=== PATIENT | male | born 1975 | race Hispanic/Latino ===

== ENCOUNTER 2018-01-22 14:15 | Emergency (ER) | payer OTHER, SELFPAY ==
--- NOTE | 2018-01-22 14:52 | RAD REPORT ---
EXAM DESCRIPTION: RAD - Foot Right 3 View - 01/22/2018 2:44 pm CLINICAL HISTORY: PAIN COMPARISON: No comparisons FINDINGS: Two screws are present in the medial malleolus. Small plantar calcaneal spur is present. N o acute fracture.
--- NOTE | 2018-01-22 15:03 | ER ---
Nurse's Notes [facility] Name: Rian Pitt Age: 42 yrs Sex: Male : 1975 Arrival Date: 01/22/2018 Time: 14:18 Bed 12 Private MD: Diagnosis: Calcaneal spur, right foot Presentation: 01/22 14:18 Presenting complaint: Patient states: It feels like something is poking my foot from la1 the inside on my right heel for the last 2 weeks, pt denies injury. Transition of care: patient was not received from another setting of care. Onset of symptoms was January 22, 2018. Risk Assessment: Do you want to hurt yourself or someone else? Patient reports no desire to harm self or others. Initial Sepsis Screen: Does the patient meet any 2 criteria? No. Patient's initial sepsis screen is negative. Does the patient have a suspected source of infection? No. Patient's initial sepsis screen is negative. Care prior to arrival: None. 14:18 Method Of Arrival: Ambulatory la1 14:18 Acuity: SHAKA 4 la1 Historical: - Allergies: 14:19 No Known Allergies; la1 - PMHx: 14:19 Diabetes - NIDDM; Hypertension; la1 - Immunization history:: Adult Immunizations up to date. - Social history:: Smoking status: Patient/guardian denies using tobacco. - Ebola Screening: : No symptoms or risks identified at this time. Screenin:38 Abuse screen: Denies threats or abuse. Nutritional screening: No deficits noted. la1 Tuberculosis screening: No symptoms or risk factors identified. Fall Risk None identified. Assessment: 14:37 General: Appears in no apparent distress. Behavior is calm, cooperative. Pain: la1 Complains of pain in right foot. Neuro: Level of Consciousness is awake, alert, obeys commands, Oriented to person, place, time, situation. Cardiovascular: Patient's skin is warm and dry. Respiratory: Airway is patent Respiratory effort is even, unlabored, Respiratory pattern is regular, symmetrical. GI: No signs and/or symptoms were reported involving the gastrointestinal system. : No signs and/or symptoms were reported regarding the genitourinary system. Vital Signs: 14:19 BP 141 / 89; Pulse 115; Resp 18; Temp 98.7; Pulse Ox 98% on R/A; Weight 111.13 kg; la1 Height 5 ft. 11 in. (180.34 cm); 14:19 Body Mass Index 34.17 (111.13 kg, 180.34 cm) la1 ED Course: 14:18 Patient arrived in ED. la1 14:19 Triage completed. la1 14:20 Arm band placed on right wrist. la1 14:21 Chris Leonard NP is PHCP. pm1 14:21 Raul Liang MD is Attending Physician. pm1 14:37 Garth Cordero, RN is Primary Nurse. la1 14:38 Call light in reach. Side rails up X 1. la1 14:38 No provider procedures requiring assistance completed. Patient did not have IV access la1 during this emergency room visit. 14:42 Foot Right 3 View XRAY In Process Unspecified. EDMS 15:01 Jose Luis Danielson DPM is Referral Physician. pm1 Administered Medications: No medications were administered Outcome: 15:02 Discharge ordered by MD. pm1 15:11 Discharged to home ambulatory, with family. hb 15:11 Condition: stable 15:11 Discharge instructions given to patient, Instructed on discharge instructions, follow up and referral plans. medication usage, Demonstrated understanding of instructions, follow-up care, medications, Prescriptions given X 1. 15:11 Patient left the ED. hb Signatures: Dispatcher [employer] EDMS Garth Cordero, RN RN la1 Chris Leonard NP PRODUCT DEVELOPMENT CARPENTER pm1 Shanda Hall RN RN hb
--- NOTE | 2018-01-22 15:03 | EDPHYS ---
Physician Documentation [facility] Name: Rian Pitt Age: 42 yrs Sex: Male : 1975 Arrival Date: 01/22/2018 Time: 14:18 Bed 12 Private MD: ED Physician Raul Liang HPI: 01/22 14:58 This 42 yrs old Male presents to ER via Ambulatory with complaints of Foot pm1 Pain Right. 14:58 The patient presents with pain. The complaints affect the right heel. pm1 14:58 Context: The problem was sustained at home, resulted from an unknown cause, the patient pm1 can fully bear weight, the patient is able to ambulate, Problem is a result from a previous injury: No. Onset: The symptoms/episode began/occurred 2 week(s) ago. Modifying factors: the symptoms are aggravated by weight bearing. Associated signs and symptoms: Pertinent negatives calf tenderness, fever, nausea, numbness, swelling, tingling, vomiting, weakness. Treatment prior to arrival includes: shoe inserts and extra socks. Severity of symptoms: in the emergency department the symptoms are actually worse. The patient has not experienced similar symptoms in the past. The patient has not recently seen a physician. Historical: - Allergies: 14:19 No Known Allergies; la1 - PMHx: 14:19 Diabetes - NIDDM; Hypertension; la1 - Immunization history:: Adult Immunizations up to date. - Social history:: Smoking status: Patient/guardian denies using tobacco. - Ebola Screening: : No symptoms or risks identified at this time. ROS: 14:58 Constitutional: Negative for fever, chills, and weight loss, Eyes: Negative for injury, pm1 pain, redness, and discharge, ENT: Negative for injury, pain, and discharge, Neck: Negative for injury, pain, and swelling, Cardiovascular: Negative for chest pain, palpitations, and edema, Respiratory: Negative for shortness of breath, cough, wheezing, and pleuritic chest pain, Abdomen/GI: Negative for abdominal pain, nausea, vomiting, diarrhea, and constipation, Back: Negative for injury and pain. 14:58 Skin: Negative for injury, rash, and discoloration, Neuro: Negative for headache, weakness, numbness, tingling, and seizure. 14:58 MS/extremity: Positive for pain, of the right heel. Exam: 14:58 Constitutional: This is a well developed, well nourished patient who is awake, alert, pm1 and in no acute distress. Head/Face: Normocephalic, atraumatic. Eyes: Pupils equal round and reactive to light, extra-ocular motions intact. Lids and lashes normal. Conjunctiva and sclera are non-icteric and not injected. Cornea within normal limits. Periorbital areas with no swelling, redness, or edema. ENT: Nares patent. No nasal discharge, no septal abnormalities noted. Tympanic membranes are normal and external auditory canals are clear. Oropharynx with no redness, swelling, or masses, exudates, or evidence of obstruction, uvula midline. Mucous membranes moist. Neck: Trachea midline, no thyromegaly or masses palpated, and no cervical lymphadenopathy. Supple, full range of motion without nuchal rigidity, or vertebral point tenderness. No Meningismus. Chest/axilla: Normal chest wall appearance and motion. Nontender with no deformity. No lesions are appreciated. Cardiovascular: Regular rate and rhythm with a normal S1 and S2. No gallops, murmurs, or rubs. Normal PMI, no JVD. No pulse deficits. Respiratory: Lungs have equal breath sounds bilaterally, clear to auscultation and percussion. No rales, rhonchi or wheezes noted. No increased work of breathing, no retractions or nasal flaring. Abdomen/GI: Soft, non-tender, with normal bowel sounds. No distension or tympany. No guarding or rebound. No evidence of tenderness throughout. Back: No spinal tenderness. No costovertebral tenderness. Full range of motion. Skin: Warm, dry with normal turgor. Normal color with no rashes, no lesions, and no evidence of cellulitis. 14:58 Musculoskeletal/extremity: Extremities: grossly normal except: noted in the right heel: tenderness, There is no evidence of swelling. Vital Signs: 14:19 BP 141 / 89; Pulse 115; Resp 18; Temp 98.7; Pulse Ox 98% on R/A; Weight 111.13 kg; la1 Height 5 ft. 11 in. (180.34 cm); 14:19 Body Mass Index 34.17 (111.13 kg, 180.34 cm) la1 MDM: 14:21 Patient medically screened. pm1 14:59 Data reviewed: vital signs. Data interpreted: Pulse oximetry: on room air is 98 %. pm1 Interpretation: normal. Counseling: I had a detailed discussion with the patient and/or guardian regarding: the historical points, exam findings, and any diagnostic results supporting the discharge/admit diagnosis, radiology results, the need for outpatient follow up, for definitive care, a hay baler, to return to the emergency department if symptoms worsen or persist or if there are any questions or concerns that arise at home. 01/22 14:22 Order name: Foot Right 3 View XRAY; Complete Time: 14:54 pm1 Administered Medications: No medications were administered Disposition: 18:38 Co-signature as Attending Physician, Raul Liang MD Available for consultation at ps1 all times. . Disposition: 01/22/18 15:02 Discharged to Home. Impression: Calcaneal spur, right foot. - Condition is Stable. - Discharge Instructions: Heel Spur. - Prescriptions for Tramadol 50 mg Oral Tablet - take 1 tablet by ORAL route every 8 hours as needed; 12 tablet. - Medication Reconciliation Form, Thank You Letter, Prescription Opioid Use form. - Follow up: Emergency Department; When: As needed; Reason: Worsening of condition. Follow up: Jose Luis Danielson DPM; When: 2 - 3 days; Reason: Recheck today's complaints, Continuance of care, Re-evaluation by your physician. - Problem is new. - Symptoms have improved. Signatures: Dispatcher [employer] EDMS Garth Cordero RN RN la1 Chris Leonard, [facility] [employer] [employer] MANAGER pm1 Shanda Hall RN RN hb Singer, Phillip, MD MD ps1 Corrections: (The following items were deleted from the chart) 15:11 15:02 01/22/2018 15:02 Discharged to Home. Impression: Calcaneal spur, right foot. hb Condition is Stable. Forms are Medication Reconciliation Form, Thank You Letter, Antibiotic Education, Prescription Opioid Use. Follow up: Emergency Department; When: As needed; Reason: Worsening of condition. Follow up: Dr. Jose Luis Danielson; When: 2 - 3 days; Reason: Recheck today's complaints, Continuance of care, Re-evaluation by your physician. Problem is new. Symptoms have improved. pm1
== END 2018-01-22 15:11 | disposition home or self-care (01) ==
LOC: ER 14:15
DX: M77.31 Calcaneal spur, right foot (principal)
CPT/HCPCS: 99283

== ENCOUNTER 2018-10-07 05:23 | Observation (INO) | payer BC, SELFPAY ==
[2018-10-07] MEDS ORDERED: NA CHLORIDE 0.9% 50 ML IV ONE (06:06)
[2018-10-07] MEDS ORDERED: NA CHLORIDE 0.9% 1,000 ML ONE (06:06)
[2018-10-07] MEDS ORDERED: KETOROLAC 30 MG/ML INJ ONE (06:06)
[2018-10-07] MEDS ORDERED: DIPHENHYDRAMINE 50 MG/ML VIAL ONE (06:06)
[2018-10-07] MEDS ORDERED: MECLIZINE HCL 12.5 MG TAB ONE (06:06)
[2018-10-07 06:07] LABS: Absolute Lymphocytes (CBC) 2.1 K/uL (0.7-4.9); Basophils % 0.4 % (0-1.3); Eosinophils % 2.8 % (0-4.4); Hematocrit 48.6 % (39.6-49.0); Lymphocytes % 24.1 % (15.3-44.8); MPV 9.4 fL (7.6-11.3); Monocytes % 8.4 % (3.3-12.3); RBC Red Blood Cell Count 5.53 M/uL (4.33-5.43)
[2018-10-07 06:16] LABS: Albumin 3.8 g/dL (3.4-5.0); Bilirubin Direct 0.2 mg/dL (0-0.2); Bilirubin Total 0.6 mg/dL (0.2-1.0); Protein, Total 7.4 g/dL (6.4-8.2)
[2018-10-07] MEDS ORDERED: METOCLOPRAMIDE 10 MG/2mL INJ ONE (06:22)
--- NOTE | 2018-10-07 07:14 | EDPHYS ---
Physician Documentation [facility] Name: Rian Pitt Age: 42 yrs Sex: Male : 1975 Arrival Date: 10/07/2018 Time: 05:24 Bed 5 Private MD: ED Physician Urbano Campbell HPI: 10/07 05:36 This 42 yrs old Male presents to ER via Unassigned with complaints of ma2 Headache, Dizziness, Nausea. 05:36 The patient complains of pain to the forehead. Onset: The symptoms/episode ma2 began/occurred gradually, 1 day(s) ago. Associated signs and symptoms: Pertinent positives: Vertigo Pertinent negatives: nausea, Photophobia sinus congestion, vision changes. Severity of symptoms: At its worst the pain was moderate, in the emergency department the pain is unchanged. Headache History: The patient has had previous headaches and this one is similar to previous episodes. The patient has experienced similar episodes in the past. Historical: - Allergies: 05:41 No Known Allergies; jd3 - Home Meds: 05:41 Novolin N Sub-Q [Active]; metformin 1,000 mg Oral tab 1 tab 2 times per day [Active]; jd3 lisinopril 10 mg Oral tab 1 tab once daily [Active]; - PMHx: 05:41 Diabetes - NIDDM; Hypertension; jd3 - PSHx: 05:41 right foot; jd3 - Immunization history:: Adult Immunizations up to date. - Social history:: Patient/guardian denies using alcohol, street drugs, The patient lives with family, Smoking status: Patient/guardian denies using tobacco. - Family history:: not pertinent. - Ebola Screening: : Patient negative for fever greater than or equal to 101.5 degrees Fahrenheit, and additional compatible Ebola Virus Disease symptoms. ROS: 05:36 Constitutional: Negative for fever, chills, and weight loss, Eyes: Negative for injury, ma2 pain, redness, and discharge. 05:36 All other systems are negative. Exam: 05:36 Constitutional: This is a well developed, well nourished patient who is awake, alert, ma2 and in no acute distress. ENT: Nares patent. No nasal discharge, no septal abnormalities noted. Tympanic membranes are normal and external auditory canals are clear. Oropharynx with no redness, swelling, or masses, exudates, or evidence of obstruction, uvula midline. Mucous membranes moist. Chest/axilla: Normal chest wall appearance and motion. Nontender with no deformity. No lesions are appreciated. Cardiovascular: Regular rate and rhythm with a normal S1 and S2. No gallops, murmurs, or rubs. Normal PMI, no JVD. No pulse deficits. Respiratory: Lungs have equal breath sounds bilaterally, clear to auscultation and percussion. No rales, rhonchi or wheezes noted. No increased work of breathing, no retractions or nasal flaring. Abdomen/GI: Soft, non-tender, with normal bowel sounds. No distension or tympany. No guarding or rebound. No evidence of tenderness throughout. Skin: Warm, dry with normal turgor. Normal color with no rashes, no lesions, and no evidence of cellulitis. MS/ Extremity: Pulses equal, no cyanosis. Neurovascular intact. Full, normal range of motion. Neuro: Awake and alert, GCS 15, oriented to person, place, time, and situation. Cranial nerves II-XII grossly intact. Motor strength 5/5 in all extremities. Sensory grossly intact. Cerebellar exam normal. Normal gait. Vital Signs: 05:41 BP 110 / 73; Pulse 87; Resp 16 S; Temp 97.4(O); Pulse Ox 100% on R/A; Weight 112.04 kg jd3 (R); Height 5 ft. 11 in. (180.34 cm) (R); Pain 6/10; 06:28 BP 108 / 70; Pulse 78; Resp 15 S; Pulse Ox 100% on R/A; Pain 3/10; jd3 07:13 BP 109 / 67; Pulse 76; Resp 18; Temp 97.4(TE); Pulse Ox 100% on R/A; hj 05:41 Body Mass Index 34.45 (112.04 kg, 180.34 cm) jd3 MDM: 05:35 Patient medically screened. ma2 05:36 Differential diagnosis: cerebral abscess, hypoglycemia, hyponatremia, uremia. Data ma2 reviewed: vital signs, nurses notes, old medical records. Counseling: I had a detailed discussion with the patient and/or guardian regarding: the historical points, exam findings, and any diagnostic results supporting the discharge/admit diagnosis, the presence of at least one elevated blood pressure reading (>120/80) during this emergency department visit, the need for outpatient follow up. Response to treatment: the patient's symptoms have resolved after treatment. 07:12 ED course: Tom. ED course: discussed with dr. Samayoa. 10/07 05:36 Order name: Basic Metabolic Panel; Complete Time: 07:08 10/07 05:36 Order name: CBC with Diff; Complete Time: 07:08 10/07 05:36 Order name: Creatinine for Radiology; Complete Time: 07:08 10/07 05:36 Order name: Hepatic Function; Complete Time: 07:08 10/07 05:36 Order name: Lipase; Complete Time: 07:08 10/07 05:36 Order name: CT Head Brain wo Cont 10/07 05:36 Order name: IV Saline Lock; Complete Time: 05:48 10/07 05:36 Order name: Labs collected and sent; Complete Time: 05:48 10/07 07:21 Order name: CONS Pharmacy Consult EDMS Administered Medications: 05:59 Drug: NS 0.9% 1000 ml Route: IV; Rate: 1 bolus; Site: right forearm; jd3 07:01 Follow up: Response: No adverse reaction; IV Status: Completed infusion; IV Intake: jd3 1000ml 05:59 Drug: Meclizine 50 mg Route: PO; jd3 06:55 Follow up: Response: No adverse reaction jd3 06:00 Drug: Benadryl 25 mg Route: IVP; Site: right forearm; jd3 07:00 Follow up: Response: No adverse reaction jd3 06:00 Drug: TORadol 30 mg Route: IVP; Site: right forearm; jd3 07:00 Follow up: Response: No adverse reaction jd3 06:13 Drug: Reglan 20 mg Route: IVP; Site: right forearm; jd3 06:30 Follow up: Response: No adverse reaction jd3 Disposition: 10/07/18 07:13 Hospitalization ordered by Candelaria Samayoa for Observation. Preliminary diagnosis is Other acute kidney failure. - Bed requested for Telemetry/MedSurg (observation). - Status is Observation. hj - Condition is Stable. - Problem is new. - Symptoms are unchanged. UTI on Admission? No Signatures: Dispatcher [employer] EDMS Enriqueta José RN RN dw Adán Tucker, RN RN hj Reinier Calzada RN RN jUrbano Parker MD MD ma2 Corrections: (The following items were deleted from the chart) 07:24 07:13 Hospitalization Ordered by Candelaria Samayoa MD for Observation. Preliminary dw diagnosis is Other acute kidney failure. Bed requested for Telemetry/MedSurg (observation). Status is Observation. Condition is Stable. Problem is new. Symptoms are unchanged. UTI on Admission? No. ma2 07:37 07:24 10/07/2018 07:13 Hospitalization Ordered by Candelaria Samayoa MD for Observation. dw Preliminary diagnosis is Other acute kidney failure. Bed requested for Telemetry/MedSurg (observation). Status is Observation. Condition is Stable. Problem is new. Symptoms are unchanged. UTI on Admission? No. dw 08:24 07:37 10/07/2018 07:13 Hospitalization Ordered by Candelaria Samayoa MD for Observation. hj Preliminary diagnosis is Other acute kidney failure. Bed requested for Telemetry/MedSurg (observation). Status is Observation. Condition is Stable. Problem is new. Symptoms are unchanged. UTI on Admission? No. dw
--- NOTE | 2018-10-07 07:14 | ER ---
Nurse's Notes [facility] Name: Rian Pitt Age: 42 yrs Sex: Male : 1975 Arrival Date: 10/07/2018 Time: 05:24 Bed 5 Private MD: Diagnosis: Other acute kidney failure Presentation: 10/07 05:38 Presenting complaint: Patient states: "after work yesterday I was having pain in my jd3 head and feeling nauseous. I feel like the room is spinning. I am also having body cramps.". Transition of care: patient was not received from another setting of care. Onset of symptoms was October 07, 2018. Risk Assessment: Do you want to hurt yourself or someone else? Patient reports no desire to harm self or others. Initial Sepsis Screen: Does the patient meet any 2 criteria? No. Patient's initial sepsis screen is negative. Does the patient have a suspected source of infection? No. Patient's initial sepsis screen is negative. Care prior to arrival: None. 05:38 Method Of Arrival: Ambulatory j 05:38 Acuity: SHAKA 3 jd3 Triage Assessment: 06:07 Pain: Pain level that patient reports is acceptable is 3 out of 10 on a pain scale. jd3 Pain began gradually, Also complains of no other associated symptoms. 06:07 Headache History: Denies prior headaches. jd3 Historical: - Allergies: 05:41 No Known Allergies; jd3 - Home Meds: 05:41 Novolin N Sub-Q [Active]; metformin 1,000 mg Oral tab 1 tab 2 times per day [Active]; jd3 lisinopril 10 mg Oral tab 1 tab once daily [Active]; - PMHx: 05:41 Diabetes - NIDDM; Hypertension; jd3 - PSHx: 05:41 right foot; jd3 - Immunization history:: Adult Immunizations up to date. - Social history:: Patient/guardian denies using alcohol, street drugs, The patient lives with family, Smoking status: Patient/guardian denies using tobacco. - Family history:: not pertinent. - Ebola Screening: : Patient negative for fever greater than or equal to 101.5 degrees Fahrenheit, and additional compatible Ebola Virus Disease symptoms. Screenin:06 Abuse screen: Denies threats or abuse. Nutritional screening: No deficits noted. jd3 Tuberculosis screening: No symptoms or risk factors identified. Fall Risk IV access (20 points). Ambulatory Aid- None/Bed Rest/Nurse Assist (0 pts). Gait- Normal/Bed Rest/Wheelchair (0 pts) Mental Status- Oriented to own ability (0 pts). Total Calix Fall Scale indicates No Risk (0-24 pts). Assessment: 05:45 General: Appears in no apparent distress. uncomfortable, Behavior is calm, cooperative, jd3 appropriate for age. Pain: Complains of pain in head Quality of pain is described as aching, pressure. Neuro: Level of Consciousness is awake, alert, obeys commands, Oriented to person, place, time, situation, Appropriate for age Gait is steady, Speech is normal, Pupils are PERRLA, Intact Reports dizziness. Cardiovascular: Capillary refill < 3 seconds Patient's skin is warm and dry. Respiratory: Airway is patent Respiratory effort is even, unlabored, Respiratory pattern is regular, symmetrical. GI: Abdomen is round non-distended, Abd is soft and non tender X 4 quads. Reports nausea, Patient currently denies diarrhea, vomiting. : No signs and/or symptoms were reported regarding the genitourinary system. EENT: No signs and/or symptoms were reported regarding the EENT system. Derm: Skin is intact, Skin is dry, Skin is normal, Skin temperature is warm. Musculoskeletal: Circulation, motion, and sensation intact. Range of motion: intact in all extremities. 06:29 Reassessment: Patient appears in no apparent distress at this time. Patient and/or jd3 family updated on plan of care and expected duration. Pain level reassessed. Patient is alert, oriented x 3, equal unlabored respirations, skin warm/dry/pink. Patient states feeling better. 07:11 General: Appears in no apparent distress. uncomfortable, Behavior is calm, cooperative, hj appropriate for age. Pain: Complains of pain in head and forehead. Neuro: Level of Consciousness is awake, alert, obeys commands, Oriented to person, place, time, situation, Appropriate for age Gait is steady, Speech is normal, Pupils are PERRLA, Intact Reports dizziness. Cardiovascular: Capillary refill < 3 seconds Patient's skin is warm and dry. Respiratory: Airway is patent Respiratory effort is even, unlabored, Respiratory pattern is regular, symmetrical. GI: Abdomen is round non-distended, Abd is soft and non tender Reports nausea. : No signs and/or symptoms were reported regarding the genitourinary system. EENT: No signs and/or symptoms were reported regarding the EENT system. Derm: Skin is intact, Skin is dry, Skin is normal, Skin temperature is warm. Musculoskeletal: Circulation, motion, and sensation intact. Range of motion:. Vital Signs: 05:41 BP 110 / 73; Pulse 87; Resp 16 S; Temp 97.4(O); Pulse Ox 100% on R/A; Weight 112.04 kg jd3 (R); Height 5 ft. 11 in. (180.34 cm) (R); Pain 6/10; 06:28 BP 108 / 70; Pulse 78; Resp 15 S; Pulse Ox 100% on R/A; Pain 3/10; jd3 07:13 BP 109 / 67; Pulse 76; Resp 18; Temp 97.4(TE); Pulse Ox 100% on R/A; hj 05:41 Body Mass Index 34.45 (112.04 kg, 180.34 cm) jd3 ED Course: 05:24 Patient arrived in ED. am2 05:35 Urbano Campbell MD is Attending Physician. ma2 05:38 Reinier Calzada RN is Primary Nurse. jd3 05:39 Triage completed. jd3 05:42 Arm band placed on. jd3 05:44 Initial lab(s) drawn, by me, sent to lab. Inserted saline lock: 20 gauge in right aa1 forearm, using aseptic technique. Blood collected. 06:05 Patient has correct armband on for positive identification. Bed in low position. Call jd3 light in reach. Side rails up X 1. Adult w/ patient. 06:07 CT Head Brain wo Cont In Process Unspecified. EDMS 07:03 Report given to Adán SERRANO. jd3 07:12 Candelaria Samayoa MD is Hospitalizing Provider. ma2 08:15 No provider procedures requiring assistance completed. Patient admitted, IV remains in hj place. intact. Administered Medications: 05:59 Drug: NS 0.9% 1000 ml Route: IV; Rate: 1 bolus; Site: right forearm; jd3 07:01 Follow up: Response: No adverse reaction; IV Status: Completed infusion; IV Intake: jd3 1000ml 05:59 Drug: Meclizine 50 mg Route: PO; jd3 06:55 Follow up: Response: No adverse reaction jd3 06:00 Drug: Benadryl 25 mg Route: IVP; Site: right forearm; jd3 07:00 Follow up: Response: No adverse reaction jd3 06:00 Drug: TORadol 30 mg Route: IVP; Site: right forearm; jd3 07:00 Follow up: Response: No adverse reaction jd3 06:13 Drug: Reglan 20 mg Route: IVP; Site: right forearm; jd3 06:30 Follow up: Response: No adverse reaction jd3 Intake: 07:01 IV: 1000ml; Total: 1000ml. jd3 Outcome: 07:13 Decision to Hospitalize by Provider. ma2 08:15 Admitted to Tele accompanied by tech, via wheelchair, room 424, with chart, Report hj called to MAGGIE Ocampo 08:15 Condition: stable 08:15 Instructed on the need for admit, Demonstrated understanding of instructions. 08:24 Patient left the ED. sixto Signatures: Dispatcher [employer] EDMS Sofy Rios RN RN aa1 Adán Tucker RN RN hj Moreno, Amanda am2 Davies, Jonathon, RN RN jd3 Urbano Campbell MD MD ct2
[2018-10-07] MEDS ORDERED: GLUCAGON 1 MG/VIAL IM PRN (10:05)
[2018-10-07] MEDS ORDERED: D50W 25 GM/50 ML SYRINGE IV PRN (10:05)
[2018-10-07] MEDS: NA CHLORIDE 0.9% 1,000 ML IV SCH ×2 (10:11→18:39)
--- NOTE | 2018-10-07 11:24 | P.HP ---
Certification for Inpatient Patient admitted to: Observation With expected LOS: <2 Midnights Patient will require the following post-hospital care: None Practitioner: I am a practitioner with admitting privileges, knowledge of patient current condition, hospital course, and medical plan of care. Services: Services provided to patient in accordance with Admission requirements found in Title 42 Section 412.3 of the Code of Federal Regulations Patient History Date of Service: 10/07/18 Primary Care Provider: Vince casas Reason for admission: Nausea mom History of Present Illness: This is a 42-year-old male with past medical history of hypertension diabetes. Patient presented to the ED complaining of having some nausea vomiting and muscle cramping after he was working out in the heat all day yesterday. Patient stated that he started progressively feeling weak as well and thus decided to come to the ER for further workup. Patient denies having any fever chills abdominal pain chest pain or shortness of breath at this time. Along with the nausea vomiting patient also had extreme headache and that was noted yesterday. Allergies No Known Allergies Allergy (Verified 10/01/16 23:03) Home Medications: Insulin -Regular Human [Novolin -R*] 10 units SQ DAILY 10/07/18 Lisinopril 20 mg PO DAILY 10/07/18 Metformin HCl 1,000 mg PO BID 10/07/18 - Past Medical/Surgical History Has patient received pneumonia vaccine in the past: No Diabetic: Yes -: DM2 -: HTN -: Right ankle surgery - Family History Family History: Reviewed- Non-Contributory - Family History Mother -: Hypertension, Other (see notes) Notes: Anxiety Brother -: Hypertension, Diabetes, Other (see notes) - Social History Smoking Status: Former smoker Counseled patient to stop smoking for: more than 10 minutes Smoking therapy provided: Yes Patient receptive to therapy: Yes Alcohol use: Yes CD- Drugs: No Caffeine use: No Place of Residence: Home Review of Systems 10-point ROS is otherwise unremarkable Physical Examination - Vital Signs Temperature: 96.8 F Blood Pressure: 104/64 Pulse: 70 Respirations: 20 Pulse Ox (%): 96 - Physical Exam General: Alert, In no apparent distress HEENT: Atraumatic, PERRLA, Mucous membr. moist/pink, EOMI, Sclerae nonicteric Neck: Supple, 2+ carotid pulse no bruit, No LAD, Without JVD or thyroid abnormality Respiratory: Clear to auscultation bilaterally, Normal air movement Cardiovascular: Regular rate/rhythm, Normal S1 S2 Gastrointestinal: Normal bowel sounds, No tenderness Musculoskeletal: No tenderness Integumentary: No rashes Neurological: Normal gait, Normal speech, Normal strength at 5/5 x4 extr, Normal tone, Normal affect Lymphatics: No axilla or inguinal lymphadenopathy - Studies Laboratory Data (last 24 hrs) 10/07/18 05:44: Creatinine 2.59 H 10/07/18 05:44: WBC 8.5, Hgb 16.1, Hct 48.6, Plt Count 195 10/07/18 05:44: Sodium 134 L, Potassium 4.0, BUN 50 H, Creatinine 2.57 H, Glucose 249 H, Total Bilirubin 0.6, AST 29, ALT 47, Alkaline Phosphatase 90, Lipase 170 Assessment and Plan - Problems (Diagnosis) (1) SHILA (acute kidney injury) Current Visit: No Status: Acute Plan: SHILA most likely secondary to dehydration. 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 Pending lab work at this time as well. Will continue with IV fluids. Discharge Plan: Home Plan to discharge in: 48 Hours - Advance Directives Does patient have a Living Will: No Does patient have a Durable POA for Healthcare: No - Code Status/Comfort Care Code Status Assessed: Yes Critical Care: No
[2018-10-07] MEDS: INSULIN -REGULAR HUMAN 50 UNIT/0.5 ML ML SQ SCH ×3 (11:30→22:02)
[2018-10-07 12:51] LABS: Urine Appearance CLOUDY; Urine Bilirubin NEGATIVE (NEG); Urine Blood NEGATIVE (NEG); Urine Color YELLOW; Urine Glucose NEGATIVE (NEG); Urine Protein 2+ (NEG); Urine Specific Gravity 1.015 (1.005-1.030); Urine Urobilinogen 0.2 mg/dL (0.2-1.0)
[2018-10-07 12:58] LABS: Urine Microscopic Reflex ORDER UMIC
[2018-10-07 13:05] LABS: Urine Bacteria <20 /HPF (NONE SEEN); Urine Culture Reflex Order NOT NEEDED; Urine RBC <5 /HPF (NONE SEEN)
[2018-10-08] MEDS: NA CHLORIDE 0.9% 1,000 ML IV SCH (05:05)
[2018-10-08 06:15] LABS: Absolute Lymphocytes (CBC) 1.9 K/uL (0.7-4.9); Basophils % 0.8 % (0-1.3); Eosinophils % 4.3 % (0-4.4); Hematocrit 41.4 % (39.6-49.0); Lymphocytes % 32.4 % (15.3-44.8); MPV 9.6 fL (7.6-11.3); RBC Red Blood Cell Count 4.79 M/uL (4.33-5.43)
[2018-10-08 06:21] LABS: Potassium 4.6 mmol/L (3.5-5.1)
[2018-10-08] MEDS: INSULIN -REGULAR HUMAN 50 UNIT/0.5 ML ML SQ SCH (08:56)
--- NOTE | 2018-10-08 10:34 | P.SSS ---
Patient History Date of Service: 10/08/18 Primary Care Provider: [place] yessenia Reason for admission: Nausea mom History of Present Illness: This is a 42-year-old male with past medical history of hypertension diabetes. Patient presented to the ED complaining of having some nausea vomiting and muscle cramping after he was working out in the heat all day yesterday. Patient stated that he started progressively feeling weak as well and thus decided to come to the ER for further workup. Patient denies having any fever chills abdominal pain chest pain or shortness of breath at this time. Along with the nausea vomiting patient also had extreme headache and that was noted yesterday. Allergies No Known Allergies Allergy (Verified 10/01/16 23:03) Home Medications: Insulin -Regular Human [Novolin -R*] 10 units SQ DAILY 10/07/18 Lisinopril 20 mg PO DAILY 10/07/18 Metformin HCl 1,000 mg PO BID 10/07/18 - Past Medical/Surgical History Has patient received pneumonia vaccine in the past: No Diabetic: Yes -: DM2 -: HTN -: Right ankle surgery - Family History Family History: Reviewed- Non-Contributory - Family History Mother -: Hypertension, Other (see notes) Notes: Anxiety Brother -: Hypertension, Diabetes, Other (see notes) - Social History Smoking Status: Former smoker Alcohol use: Yes CD- Drugs: No Caffeine use: No Place of Residence: Home Review of Systems 10-point ROS is otherwise unremarkable Physical Examination - Vital Signs Temperature: 97.0 F Blood Pressure: 141/93 Pulse: 75 Respirations: 18 Pulse Ox (%): 100 - Physical Exam General: Alert, In no apparent distress HEENT: Atraumatic, PERRLA, Mucous membr. moist/pink, EOMI, Sclerae nonicteric Neck: Supple, 2+ carotid pulse no bruit, No LAD, Without JVD or thyroid abnormality Respiratory: Clear to auscultation bilaterally, Normal air movement Cardiovascular: Regular rate/rhythm, Normal S1 S2 Gastrointestinal: Normal bowel sounds, No tenderness Musculoskeletal: No tenderness Integumentary: No rashes Neurological: Normal gait, Normal speech, Normal strength at 5/5 x4 extr, Normal tone, Normal affect Lymphatics: No axilla or inguinal lymphadenopathy - Diagnosis (Problem(s)) (1) SHILA (acute kidney injury) Current Visit: No Status: Resolved (2) Hypertension Current Visit: Yes Status: Chronic Qualifiers: Hypertension type: essential hypertension Qualified Code(s): I10 - Essential (primary) hypertension (3) DM2 (diabetes mellitus, type 2) Current Visit: No Status: Chronic Qualifiers: Diabetes mellitus chcf insulin use: without roasterman use Diabetes mellitus complication status: without complication Qualified Code(s): E11.9 - Type 2 diabetes mellitus without complications Treatment Summary: Overall during the hospital stay patient remained stable. Patient was admitted to the hospital for a KI secondary to dehydration secondary to working out in the heat. Patient was started on IV fluids had marked improvement in his acute kidney injury. [place] much better. His symptoms resolved. Patient then was discharged home under stable condition. - Disposition Disposition: ROUTINE DISCHARGE Condition: GOOD Diet: Regular Activity: Ad herlinda
--- NOTE | 2018-10-09 12:44 | RAD REPORT ---
EXAM DESCRIPTION: CT - Head Brain Wo Cont - 10/07/2018 6:30 am CLINICAL HISTORY: The patient is 42 years old and is Male; Aphasia;Pain TECHNIQUE: Axial computed tomography images of the head/brain without intravenous contrast. Sagitt al and coronal reformatted images were created and reviewed. This CT exam was performed using one o r more of the following dose reduction techniques: automated exposure control, adjustment of the mA and/or kV according to patient size, and/or use of iterative reconstruction technique. COMPARISON: CT head October 01, 2016. FINDINGS: BRAIN: Unremarkable. The babcock-white matter differentiation is preserved . No hemorrhag e. No significant white matter disease. No edema. No extra-axial fluid collections. VENTRICLES: Unremarkable. No ventriculomegaly. BONES/JOINTS: No acute fracture. SOFT TISSUES: Unremarkable. SINUSES: Unremarkable as visualized. No acute sinusitis. MASTOID AIR CELLS: Unremarkable as visualized. No mastoid effusion. IMPRESSION: No acute intracranial findings. Electronically signed by: Terrie Callahan MD 10/07/2018 6:14 AM CDT Due to temporary technical issues with the PACS/Fluency reporting system, reports are being signed by the in house radiologist as a courtesy to ensure prompt reporting. The interpreting radiologist is f ully responsible for the content of the report.
== END 2018-10-08 10:34 | disposition home or self-care (01) ==
LOC: ER 05:23 → ERHOLD 07:17 → 4TH 08:05
PROVIDERS: ADMIT Family Medicine; ATTEND Family Medicine
DX: N17.9 Acute kidney failure, unspecified (principal); E86.0 Dehydration; I10 Essential (primary) hypertension; E11.9 Type 2 diabetes mellitus without complications; Z87.891 Personal history of nicotine dependence
CPT/HCPCS: 36415; 70450; 80048; 80076; 81003; 81015; 82550; 82553; 82962; 83690; 85025; 96361; 96374; 96375; 99285; G0378; J2765; J7030

== ENCOUNTER 2018-12-28 19:53 | Emergency (ER) | payer SELFPAY ==
[2018-12-28 21:49] LABS: Urine Blood TRACE (NEG); Urine Glucose TRACE (NEG); Urine Protein 3+ (NEG)
[2018-12-28] MEDS ORDERED: ASPIRIN EC 81 MG TAB PO ONE (21:54)
[2018-12-28] MEDS ORDERED: NA CHLORIDE 0.9% 1,000 ML ONE (21:54)
[2018-12-28 21:58] LABS: Absolute Lymphocytes (CBC) 2.8 K/uL (0.7-4.9); Basophils % 0.6 % (0-1.3); Hematocrit 39.6 % (39.6-49.0); Lymphocytes % 30.2 % (15.3-44.8); MPV 9.6 fL (7.6-11.3); RBC Red Blood Cell Count 4.56 M/uL (4.33-5.43)
[2018-12-28 22:03] LABS: Protime INR 0.96
[2018-12-28 22:18] LABS: ALT/SGPT 35 U/L (12-78); AST/SGOT 18 U/L (15-37); Albumin 3.4 g/dL (3.4-5.0); Alkaline Phosphatase 104 U/L (45-117); BUN Blood Urea Nitrogen 28 mg/dL (7-18); Bicarbonate 25 mmol/L (21-32); Bilirubin Direct < 0.1 mg/dL (0-0.2); Bilirubin Total 0.2 mg/dL (0.2-1.0); Glucose Level 242 mg/dL (74-106); Magnesium 1.6 mg/dL (1.8-2.4); NT PRO-BNP 52 pg/mL (<125); Potassium 4.2 mmol/L (3.5-5.1); Protein, Total 6.6 g/dL (6.4-8.2); Sodium Level 138 mmol/L (136-145); Troponin (Emerg Dept Use Only) < 0.02 ng/mL (0.0-0.045)
--- NOTE | 2018-12-28 22:42 | ER ---
Nurse's Notes [facility] Name: Rian Pitt Age: 43 yrs Sex: Male : 1975 Arrival Date: 12/28/2018 Time: 19:59 Bed 26 Private MD: Diagnosis: Type 2 diabetes mellitus;Essential (primary) hypertension;Hypomagnesemia;Unspecified kidney failure-insufficency;Proteinuria Presentation: 12/28 20:10 Presenting complaint: Patient states: burning sensation all over body X5days. ak1 Transition of care: patient was not received from another setting of care. Onset of symptoms is unknown. Risk Assessment: Do you want to hurt yourself or someone else? Patient reports no desire to harm self or others. Initial Sepsis Screen: Does the patient meet any 2 criteria? No. Patient's initial sepsis screen is negative. Does the patient have a suspected source of infection? No. Patient's initial sepsis screen is negative. Care prior to arrival: None. 20:10 Method Of Arrival: Ambulatory ak1 20:10 Acuity: SHAKA 3 ak1 Triage Assessment: 20:12 General: Appears in no apparent distress. Behavior is calm, cooperative. ak1 Historical: - Allergies: 20:12 No Known Allergies; ak1 - Home Meds: 20:12 lisinopril 5 mg oral tab [Active]; Novolin N Sub-Q [Active]; metformin 1,000 mg Oral ak1 tab 1 tab 2 times per day [Active]; lovastatin 10 mg Oral tab 1 tab once daily [Active]; glimepiride 1 mg oral tab 1 tab twice daily [Active]; - PMHx: 20:12 Hypertension; Diabetes - NIDDM; ak1 - PSHx: 20:12 right foot; ak1 - Immunization history:: Adult Immunizations unknown. - Social history:: Smoking status: Patient/guardian denies using tobacco. - Ebola Screening: : No symptoms or risks identified at this time. Screenin:54 Abuse screen: Denies threats or abuse. Denies injuries from another. Nutritional mg2 screening: No deficits noted. Tuberculosis screening: No symptoms or risk factors identified. Fall Risk None identified. Assessment: 20:55 General: Appears in no apparent distress. comfortable, Behavior is calm, cooperative. mg2 Pain: Complains of pain in whole body Pain does not radiate. Pain currently is 2 out of 10 on a pain scale. Quality of pain is described as burning, Pain began gradually, 4-5 days ago Is intermittent. Neuro: Level of Consciousness is awake, alert, obeys commands, Oriented to person, place, time, situation. Cardiovascular: Capillary refill < 3 seconds Patient's skin is warm and dry. Respiratory: Airway is patent Respiratory effort is even, unlabored, Respiratory pattern is regular, symmetrical. GI: No signs and/or symptoms were reported involving the gastrointestinal system. : No signs and/or symptoms were reported regarding the genitourinary system. EENT: No signs and/or symptoms were reported regarding the EENT system. Derm: Skin is intact, is healthy with good turgor, Skin is pink, warm \T\ dry. normal, Reports burning, burning sensation all over his body. Musculoskeletal: Circulation, motion, and sensation intact. Capillary refill < 3 seconds. 22:47 Reassessment: patient up for discharge after completing the magnesium. mg2 Vital Signs: 20:12 BP 155 / 86; Pulse 89; Resp 18; Temp 97.6; Pulse Ox 100% on R/A; Weight 112.04 kg (R); ak1 Height 5 ft. 11 in. (180.34 cm) (R); Pain 7/10; 20:57 BP 133 / 92; Pulse 74; Resp 18; Pulse Ox 100% on R/A; mg2 22:05 BP 124 / 87; Pulse 68; Resp 16; Pulse Ox 99% ; lt1 22:38 BP 123 / 82; Pulse 67; Resp 18; Pulse Ox 98% on R/A; mg2 23:49 BP 130 / 78; Pulse 70; Resp 18; Temp 98; Pulse Ox 100% on R/A; mg2 20:12 Body Mass Index 34.45 (112.04 kg, 180.34 cm) ak1 ED Course: 19:59 Patient arrived in ED. ag3 20:11 Triage completed. ak1 20:12 Arm band placed on Patient placed in an exam room, on a stretcher, Patient notified of ak1 wait time. 20:40 Oli Torres, RN is Primary Nurse. mg2 20:54 No provider procedures requiring assistance completed. mg2 20:56 Patient has correct armband on for positive identification. mg2 21:17 Cash Harvey MD is Attending Physician. [facility] 21:50 Initial lab(s) drawn, by ne, sent to lab. Inserted saline lock: 20 gauge in right lt1 antecubital area, using aseptic technique. 22:05 EKG done, by ED staff. lt1 22:26 XRAY Chest (1 view) In Process Unspecified. EDMS 23:50 IV discontinued, intact, bleeding controlled, No redness/swelling at site. Pressure mg2 dressing applied. Administered Medications: 21:55 Drug: Aspirin 81 mg Route: PO; mg2 22:38 Follow up: Response: No adverse reaction mg2 21:56 Drug: NS 0.9% 500 ml Route: IV; Rate: bolus; Site: right antecubital; mg2 22:38 Follow up: Response: No adverse reaction; IV Status: Completed infusion; IV Intake: mg2 500ml 22:46 Drug: Magnesium Sulfate 1 grams Route: IVPB; Infused Over: 1 hrs; Site: right mg2 antecubital; 23:49 Follow up: Response: No adverse reaction; IV Status: Completed infusion mg2 Point of Care Testing: Blood Glucose: 20:54 Blood Glucose: 257 mg/dL; mg2 Ranges: Intake: 22:38 IV: 500ml; Total: 500ml. mg2 Outcome: 22:42 Discharge ordered by . sunny 23:50 Discharged to home ambulatory. mg2 23:50 Condition: stable 23:50 Discharge instructions given to patient, Instructed on discharge instructions, follow up and referral plans. medication usage, Demonstrated understanding of instructions, follow-up care, medications, Prescriptions given X 1. 23:50 Patient left the ED. mg2 Signatures: Dispatcher [employer] [facility] Cash Harvey MD MD cha Krenek, Amber RN RN ak1 Oli Torres RN RN mg2 Jazmyne Garrett Leah 1 Corrections: (The following items were deleted from the chart) 21:56 20:54 Patient did not have IV access during this emergency room visit. mg2 mg2
--- NOTE | 2018-12-28 22:43 | EDPHYS ---
Physician Documentation [facility] Name: Rian Pitt Age: 43 yrs Sex: Male : 1975 Arrival Date: 12/28/2018 Time: 19:59 Bed 26 Private MD: ED Physician Cash Harvey HPI: 12/28 21:39 This 43 yrs old Male presents to ER via Ambulatory with complaints of BURNING sunny SENSATION ALL OVER BODY. 21:39 skin burning all over. Onset: The symptoms/episode began/occurred 5 day(s) ago. sunny Severity of symptoms: At their worst the symptoms were mild in the emergency department the symptoms are unchanged. The patient has not experienced similar symptoms in the past. Historical: - Allergies: 20:12 No Known Allergies; ak1 - Home Meds: 20:12 lisinopril 5 mg oral tab [Active]; Novolin N Sub-Q [Active]; metformin 1,000 mg Oral ak1 tab 1 tab 2 times per day [Active]; lovastatin 10 mg Oral tab 1 tab once daily [Active]; glimepiride 1 mg oral tab 1 tab twice daily [Active]; - PMHx: 20:12 Hypertension; Diabetes - NIDDM; ak1 - PSHx: 20:12 right foot; ak1 - Immunization history:: Adult Immunizations unknown. - Social history:: Smoking status: Patient/guardian denies using tobacco. - Ebola Screening: : No symptoms or risks identified at this time. ROS: 21:40 Constitutional: Negative for fever, chills, and weight loss, Eyes: Negative for injury, sunny pain, redness, and discharge, ENT: Negative for injury, pain, and discharge, Neck: Negative for injury, pain, and swelling, Cardiovascular: Negative for chest pain, palpitations, and edema, Respiratory: Negative for shortness of breath, cough, wheezing, and pleuritic chest pain, Abdomen/GI: Negative for abdominal pain, nausea, vomiting, diarrhea, and constipation, Back: Negative for injury and pain, : Negative for injury, bleeding, discharge, and swelling, MS/Extremity: Negative for injury and deformity, Neuro: Negative for headache, weakness, numbness, tingling, and seizure, Psych: Negative for depression, anxiety, suicide ideation, homicidal ideation, and hallucinations, Allergy/Immunology: Negative for hives, rash, and allergies, Endocrine: Negative for neck swelling, polydipsia, polyuria, polyphagia, and marked weight changes, Hematologic/Lymphatic: Negative for swollen nodes, abnormal bleeding, and unusual bruising. 21:40 Skin: Negative for abrasions, rash. Exam: 21:40 Constitutional: This is a well developed, well nourished patient who is awake, alert, sunny and in no acute distress. Head/Face: Normocephalic, atraumatic. Eyes: Pupils equal round and reactive to light, extra-ocular motions intact. Lids and lashes normal. Conjunctiva and sclera are non-icteric and not injected. Cornea within normal limits. Periorbital areas with no swelling, redness, or edema. ENT: Nares patent. No nasal discharge, no septal abnormalities noted. Tympanic membranes are normal and external auditory canals are clear. Oropharynx with no redness, swelling, or masses, exudates, or evidence of obstruction, uvula midline. Mucous membranes moist. Neck: Trachea midline, no thyromegaly or masses palpated, and no cervical lymphadenopathy. Supple, full range of motion without nuchal rigidity, or vertebral point tenderness. No Meningismus. Chest/axilla: Normal chest wall appearance and motion. Nontender with no deformity. No lesions are appreciated. Cardiovascular: Regular rate and rhythm with a normal S1 and S2. No gallops, murmurs, or rubs. Normal PMI, no JVD. No pulse deficits. Respiratory: Lungs have equal breath sounds bilaterally, clear to auscultation and percussion. No rales, rhonchi or wheezes noted. No increased work of breathing, no retractions or nasal flaring. Abdomen/GI: Soft, non-tender, with normal bowel sounds. No distension or tympany. No guarding or rebound. No evidence of tenderness throughout. Back: No spinal tenderness. No costovertebral tenderness. Full range of motion. Male : Normal genitalia with no discharge or lesions. MS/ Extremity: Pulses equal, no cyanosis. Neurovascular intact. Full, normal range of motion. Neuro: Awake and alert, GCS 15, oriented to person, place, time, and situation. Cranial nerves II-XII grossly intact. Motor strength 5/5 in all extremities. Sensory grossly intact. Cerebellar exam normal. Normal gait. Psych: Awake, alert, with orientation to person, place and time. Behavior, mood, and affect are within normal limits. 21:40 Skin: Appearance: Color: normal in color, Temperature: normal temperature, Moisture: normal moisture, petechiae, not noted, ecchymosis, not noted, flushing, not noted, diaphoresis is not appreciated, swelling, is not appreciated. Vital Signs: 20:12 BP 155 / 86; Pulse 89; Resp 18; Temp 97.6; Pulse Ox 100% on R/A; Weight 112.04 kg (R); ak1 Height 5 ft. 11 in. (180.34 cm) (R); Pain 7/10; 20:57 BP 133 / 92; Pulse 74; Resp 18; Pulse Ox 100% on R/A; mg2 22:05 BP 124 / 87; Pulse 68; Resp 16; Pulse Ox 99% ; lt1 22:38 BP 123 / 82; Pulse 67; Resp 18; Pulse Ox 98% on R/A; mg2 23:49 BP 130 / 78; Pulse 70; Resp 18; Temp 98; Pulse Ox 100% on R/A; mg2 20:12 Body Mass Index 34.45 (112.04 kg, 180.34 cm) ak1 MDM: 21:17 Patient medically screened. [facility] 21:41 Data reviewed: vital signs, nurses notes, lab test result(s), EKG, radiologic studies, sunny plain films. 12/28 21:14 Order name: Urine Dipstick--Ancillary (enter results); Complete Time: 22:40 [facility] 12/28 21:38 Order name: Basic Metabolic Panel; Complete Time: 22:40 [facility] 12/28 21:38 Order name: CBC with Diff; Complete Time: 22:40 [facility] 12/28 21:38 Order name: LFT's; Complete Time: 22:40 [facility] 12/28 21:38 Order name: Magnesium; Complete Time: 22:40 [facility] 12/28 21:38 Order name: NT PRO-BNP; Complete Time: 22:40 [facility] 12/28 21:38 Order name: PT-INR; Complete Time: 22:40 [facility] 12/28 21:38 Order name: Troponin (emerg Dept Use Only); Complete Time: 22:40 [facility] 12/28 21:38 Order name: XRAY Chest (1 view) [facility] 12/28 21:38 Order name: EKG; Complete Time: 21:39 [facility] 12/28 21:38 Order name: Cardiac monitoring; Complete Time: 21:55 [facility] 12/28 21:38 Order name: EKG - Nurse/Tech; Complete Time: 21:55 [facility] 12/28 21:38 Order name: IV Saline Lock; Complete Time: 21:50 [facility] 12/28 21:38 Order name: Labs collected and sent; Complete Time: 21:51 [facility] 12/28 21:38 Order name: O2 Per Protocol; Complete Time: 21:55 [facility] 12/28 21:38 Order name: O2 Sat Monitoring; Complete Time: 21:55 [facility] Administered Medications: 21:55 Drug: Aspirin 81 mg Route: PO; mg2 22:38 Follow up: Response: No adverse reaction mg2 21:56 Drug: NS 0.9% 500 ml Route: IV; Rate: bolus; Site: right antecubital; mg2 22:38 Follow up: Response: No adverse reaction; IV Status: Completed infusion; IV Intake: mg2 500ml 22:46 Drug: Magnesium Sulfate 1 grams Route: IVPB; Infused Over: 1 hrs; Site: right mg2 antecubital; 23:49 Follow up: Response: No adverse reaction; IV Status: Completed infusion mg2 Point of Care Testing: Blood Glucose: 20:54 Blood Glucose: 257 mg/dL; mg2 Ranges: Critical Glucose Levels:Adult <50 mg/dl or >400 mg/dl <40 mg/dl or >180 mg/dl Disposition: 12/28/18 22:42 Discharged to Home. Impression: Type 2 diabetes mellitus, Essential (primary) hypertension, Hypomagnesemia, Unspecified kidney failure - insufficency, Proteinuria. - Condition is Stable. - Discharge Instructions: Type 2 Diabetes Mellitus, Diagnosis, Adult, Hypertension, Hypomagnesemia, Proteinuria, Hypertension, Vweo-[id number], How to Take Your Blood Pressure, Wqaz-er-Xpts, Aspirin and Your Heart, Chronic Kidney Disease, Adult, Uwti-oz-Krui, Chronic Kidney Disease, Adult, Type 2 Diabetes Mellitus, Diagnosis, Adult, Cmnv-wz-Eeso, Managing Your Hypertension. - Prescriptions for Amitriptyline 25 mg Oral Tablet - take 1 tablet by ORAL route At bedtime As needed; 30 tablet. - Medication Reconciliation Form, Thank You Letter, Antibiotic Education, Prescription Opioid Use form. - Follow up: Private Physician; When: 2 - 3 days; Reason: Recheck today's complaints, Continuance of care, Re-evaluation by your physician. - Problem is new. - Symptoms have improved. Signatures: Dispatcher [employer] EDMS Cash Harvey MD MD cha Krenek, Amber RN RN ak1 Oli Torres RN RN mg2 Corrections: (The following items were deleted from the chart) 22:43 22:42 12/28/2018 22:42 Discharged to Home. Impression: Type 2 diabetes mellitus; sunny Essential (primary) hypertension; Hypomagnesemia; Unspecified kidney failure - insufficency. Condition is Stable. Discharge Instructions: Type 2 Diabetes Mellitus, Diagnosis, Adult, Hypertension, Hypertension, [id number], How to Take Your Blood Pressure, [id number]-[id number], Aspirin and Your Heart, Type 2 Diabetes Mellitus, Diagnosis, Adult, Ddvy-ok-Xyze, Managing Your Hypertension. Prescriptions for Amitriptyline 25 mg Oral Tablet - take 1 tablet by ORAL route At bedtime As needed; 30 tablet. and Forms are Medication Reconciliation Form, Thank You Letter, Antibiotic Education, Prescription Opioid Use. Follow up: Private Physician; When: 2 - 3 days; Reason: Recheck today's complaints, Continuance of care, Re-evaluation by your physician. Problem is new. Symptoms have improved. sunny 23:50 22:43 12/28/2018 22:42 Discharged to Home. Impression: Type 2 diabetes mellitus; mg2 Essential (primary) hypertension; Hypomagnesemia; Unspecified kidney failure - insufficency; Proteinuria. Condition is Stable. Discharge Instructions: Type 2 Diabetes Mellitus, Diagnosis, Adult, Hypertension, Hypertension, [id number], How to Take Your Blood Pressure, Myuz-kf-Isro, Aspirin and Your Heart, Type 2 Diabetes Mellitus, Diagnosis, Adult, [id number]-Kocq, Managing Your Hypertension, Hypomagnesemia, Chronic Kidney Disease, Adult, Cvkh-ld-Ziby, Chronic Kidney Disease, Adult. Prescriptions for Amitriptyline 25 mg Oral Tablet - take 1 tablet by ORAL route At bedtime As needed; 30 tablet. and Forms are Medication Reconciliation Form, Thank You Letter, Antibiotic Education, Prescription Opioid Use. Follow up: Private Physician; When: 2 - 3 days; Reason: Recheck today's complaints, Continuance of care, Re-evaluation by your physician. Problem is new. Symptoms have improved. sunny
[2018-12-28] MEDS ORDERED: MAGNESIUM SULFATE 1 gm IVPB 1 GM/100 ML BAG IV ONE (22:44)
--- NOTE | 2018-12-28 23:35 | RAD REPORT ---
EXAM DESCRIPTION: Jason Single View12/28/2018 10:26 pm CLINICAL HISTORY: cough COMPARISON: 2017 FINDINGS: The lungs appear clear of acute infiltrate. The heart is normal size IMPRESSION: No acute abnormalities displayed
[2018-12-29 04:17] VITALS: BP 130/78; TEMP 98; O2SAT 100
--- NOTE | 2018-12-29 07:38 | EKG ---
Test Date: 2018-12-28 Test Time: 22:01:37 [facility]ilingual [facility]r Generalist: SIVA MEASUREMENT RESULTS: Intervals: Rate: 69 WY: 162 QRSD: 92 QT: 392 QTc: 420 Thayer: P: 37 WY: 162 QRS: 45 T: 31 INTERPRETIVE STATEMENTS: Normal sinus rhythm Normal ECG Compared to ECG 02/13/2018 15:06:11 Myocardial infarct finding no longer present Electronically Signed On 12-29-18 07:37:41 CDT by Edgar Renee
== END 2018-12-28 23:50 | disposition home or self-care (01) ==
LOC: ER 19:53
DX: N19 Unspecified kidney failure (principal); E11.22 Type 2 diabetes mellitus with diabetic chronic kidney disease; I10 Essential (primary) hypertension; E83.42 Hypomagnesemia; R80.9 Proteinuria, unspecified
CPT/HCPCS: 36415; 71045; 80048; 80076; 81003; 82962; 83735; 83880; 84484; 85025; 85610; 93005; 96361; 96365; 99284; J3475; J7030